=== PATIENT | male | born 1965 | race Caucasian/White ===

== ENCOUNTER 2020-06-17 16:02 | Emergency (ER) | payer OTHER ==
--- NOTE | 2020-06-17 16:54 | RAD ---
Chest one view HISTORY: Dehydration. Dyspnea. COMPARISON: 09/05/2014. FINDINGS: Cardiac silhouette and pulmonary vasculature are unremarkable. Mediastinum is midline. Shal low inspiration accentuates pulmonary markings. Focal ill-defined parenchymal opacity projects over the right posterior lung base. No other areas of airspace consolidation reliably demonstrated. No evidence of pneumothorax. IMPRESSION : Right lower lobe infiltrate. Not a typical appearance for COVID pneumonitis. Correlate for bacterial pneumonia.
[2020-06-17] MEDS ORDERED: Ketorolac Tromethamine 30 MG/ML VIAL ONE (17:03)
[2020-06-17] MEDS ORDERED: Ondansetron PF 4 MG/2 ML Vial ONE (17:03)
[2020-06-17] MEDS ORDERED: Dexamethasone 10 MG/ML VIAL ONE (17:03)
[2020-06-17 17:10] LABS: #Lymphocytes 0.8 thou/uL (1.20-3.40); #Monocytes 0.3 thou/uL (0.11-0.59); #Neutrophils 3.8 thou/uL (1.40-6.50); %Basophils 0.6 % (0.0-1.0); %Eosinophils 0.1 % (0.0-10.0); %Lymphocytes 16.8 % (21.0-51.0); %Monocytes 6.5 % (0.0-10.0); Hemoglobin 16.3 g/dL (14.0-18.0); Mean Corpuscular HGB CONC 34.7 g/dL (32.0-36.0); Mean Corpuscular Hemoglobin 30.5 pg (27.0-31.0); Mean Corpuscular Volume 87.9 fL (78.0-98.0); Mean Platelet Volume 9.2 fL (7.4-10.4); Platelet Count 92 thou/uL (130-400); RBC Distribution Width 13.1 % (11.5-14.5); Red Blood Cell (RBC) Count 5.34 mill/uL (4.70-6.10)
[2020-06-17 17:23] LABS: ALT (SGPT) 35 U/L (8-55); AST (SGOT) 30 U/L (5-34); Albumin 4.4 g/dL (3.5-5.0); Alkaline Phosphatase 52 U/L (40-110); Anion Gap 14 mmol/L (10-20); BUN (Urea Nitrogen) 17 mg/dL (8.4-25.7); CK (CPK) 171 U/L (30-200); Calc. Creatinine Clearance 0 mL/min (70-130); Calcium 9.1 mg/dL (7.8-10.44); Carbon Dioxide 25 mmol/L (22-29); Chloride 98 mmol/L (98-107); Globulin 3.4 g/dL (2.4-3.5); Glucose 103 mg/dL (70-105); Lipase 23 U/L (8-78); Protein, Total 7.8 g/dL (6.0-8.3); Sodium 133 mmol/L (136-145)
[2020-06-17 17:26] LABS: Large Platelets SLIGHT; MDiff Complete? YES; Platelet Morphology Comment Appears Decreased; RBC Morphology Normal
== END 2020-06-17 18:24 | disposition home or self-care (01) ==
LOC: ERS 16:02
DX: U07.1 COVID-19 (principal); J12.82 Pneumonia due to coronavirus disease 2019; M10.9 Gout, unspecified; I10 Essential (primary) hypertension; Z79.899 Other long term (current) drug therapy
CPT/HCPCS: 36415; 71045; 80053; 82550; 83690; 84484; 85025; 93005; 96374; 96375; J1100; J1885; J2405